=== PATIENT | male | born 1965 | race Caucasian/White ===

== ENCOUNTER 2024-06-07 08:46 | Observation (INO) ==
[2024-06-07] MEDS ORDERED: Iodixanol 320 (CONTRAST) 100 ML SDV IV ONE (09:12)
[2024-06-07 09:13] LABS: ABS Eosinophils 0.2 10^3/uL (0.0-0.5); ABS Monocytes 0.6 10^3/uL (0.0-1.1); ABS Neutrophils 4.1 10^3/uL (1.5-7.6); Eosinophil % 2.8 %; Hematocrit 50.3 % (38-53); Hemoglobin 17.4 g/dL (13.2-16.3); Lymphocyte % 28.8 %; Mean Corpuscular Hemoglobin 30.5 pg (27-33); Mean Corpuscular Hgb Conc 34.6 g/dL (31-36); Mean Corpuscular Volume 88.2 fL (80-97); Mean Platelet Volume 8.5 fL (7.5-11.2); Nucleated Red Blood Cells % 0.1 %/100WBC (0.0-0.8); Platelet Count 241 10^3/uL (150-450); Red Blood Count 5.71 10^6/uL (4.06-5.63); Red Cell Distribution Width 13.4 % (12-17); White Blood Count 6.9 10^3/uL (3.6-10.2)
[2024-06-07] MEDS ORDERED: Lorazepam PYXIS KEY PRN (09:32)
[2024-06-07 09:38] LABS: Activated Partial Thrombo Time 31.7 seconds (26.0-38.0); INR 0.88 (0.85-1.14)
[2024-06-07] MEDS: LORazepam 2 mg VIAL 1 ml IV PUSH ONE (09:38)
[2024-06-07] MEDS: Lactated Ringers 1000 ml BAG 1,000 ML IV ONE (09:45)
[2024-06-07 10:19] LABS: Albumin 4.8 g/dL (3.2-5.2); Albumin/Globulin Ratio 1.8 (1-3); Calcium 10.2 mg/dL (8.6-10.3); Creatinine, Serum 0.92 mg/dL (0.67-1.17); Direct Bilirubin 0.1 mg/dL (0.03-0.18); Globulin 2.6 g/dL (2-4); HDL Cholesterol 73.9 mg/dL; Indirect Bilirubin 0.5 mg/dL (0.3-1.0); Potassium 4.3 mmol/L (3.5-5.0); Total Bilirubin 0.6 mg/dL (0.2-1.0); Total Protein 7.4 g/dL (6.4-8.9)
[2024-06-07] MEDS: Labetalol IV 5 MG/ML 20 ml VIAL IV PUSH ONE (10:30)
[2024-06-07 13:29] LABS: C Reactive Protein 3.22 mg/L (<8.01)
[2024-06-07 15:02] LABS: Urine Appearance Clear; Urine Bilirubin Negative (Negative); Urine Blood Negative (Negative); Urine Color Light-Yellow; Urine Glucose Negative (Negative); Urine Ketones Negative (Negative); Urine Nitrite Negative (Negative); Urine Protein Negative (Negative); Urine Specific Gravity 1.033 (1.002-1.030); Urine Urobilinogen Negative (Negative); Urine pH 6.5 (5.0-8.0)
[2024-06-07] MEDS: Enoxaparin 40 MG/0.4 ML SYR SUBCUT SCH (20:08)
[2024-06-08 10:58] VITALS: BP 150/107
== END 2024-06-08 12:35 | disposition home or self-care (01) ==
LOC: ED 08:46 → EDHOLD 08:46 → MEDTELE 14:38
PROVIDERS: ADMIT Internal Medicine; ATTEND Internal Medicine